=== PATIENT | female | born 1975 | race Caucasian/White ===

== ENCOUNTER 2017-07-27 15:48 | Emergency (ER) | payer SELFPAY ==
[~2017-07-27] VITALS: Ht 160 cm; Wt 77.1 kg
[2017-07-27 15:48] VITALS: BP 121/71
--- NOTE | 2017-07-27 16:45 | NUR ---
CALLED FOR TRIAGE, NO ANSWER, PT PHYSICALLY NOT IN WAITING ROOM
--- NOTE | 2017-07-27 17:50 | NUR ---
CALLED FOR TRIAGE, NO ANSWER, PT PHYSICALLY NOT IN WAITING ROOM
--- NOTE | 2017-07-27 19:13 | NUR ---
RECEIVED REPORT FROM PARVEEN CHOI.
== END 2017-07-27 21:09 | disposition home or self-care (01) ==
LOC: ER 16:00
DX: S63.613A Unspecified sprain of left middle finger, initial encounter (principal); Z98.890 Other specified postprocedural states; X58.XXXA Exposure to other specified factors, initial encounter; Y93.89 Activity, other specified; Y92.89 Other specified places as the place of occurrence of the external cause; Y99.8 Other external cause status
CPT/HCPCS: 73140-TC; A4606; Z7610

== ENCOUNTER 2018-12-19 14:21 | Emergency (ER) | payer MEDICAID ==
[~2018-12-19] VITALS: Ht 167.6 cm; Wt 76.7 kg
--- NOTE | 2018-12-19 15:06 | NUR ---
C/O L FLANK PAIN AND NOSE BLEEDING SINCE 6AM PT "HAVING HARD TIME TO URINATE". STATES PAIN 7/10 AND SHARP. DENIES CHANGES IN BLADDER/BOWEL HABITS. ON MONITOR, MADE COMFORTABLE, AND READY FOR EVAL.
[2018-12-19] MEDS ORDERED: KETOROLAC TROMETHAMINE INJ 30 MG/ML VIAL IV ONE (15:30)
[2018-12-19] MEDS ORDERED: ONDANSETRON HCL/PF 4 MG/2 ML VIAL IVP ONE (15:30)
[2018-12-19] MEDS ORDERED: IV NS 0.9% 1,000 ML BAG IV ONE (15:30)
[2018-12-19 15:38] LABS: BASOPHILS # (AUTO) 0.1 /CMM (0.0-0.2); BASOPHILS % (AUTO) 1.1 % (0.0-2.0); EOSINOPHILS % (AUTO) 1.8 % (0.0-6.0); HEMATOCRIT 37 % (33-45); HEMOGLOBIN 12.5 g/dL (11.5-14.8); LYMPHOCYTES # (AUTO) 1.8 /CMM (0.8-4.8); MEAN CORPUSCULAR HGB CONC 34 g/dl (31.0-36.0); MEAN CORPUSCULAR VOLUME 87 fL (82-100); MONOCYTES # (AUTO) 0.4 /CMM (0.1-1.30); MONOCYTES % (AUTO) 5.8 % (2.0-12.0); NEUTROPHILS # (AUTO) 4.5 /CMM (1.8-8.9); NEUTROPHILS % (AUTO) 65.3 % (43.0-81.0); PLATELET COUNT (AUTO) 409 /CMM (150-450); RED BLOOD CELL COUNT(AUTO) 4.23 MIL/uL (4.0-5.2); WHITE BLOOD COUNT (AUTO) 6.8 K/uL (4.3-11.0)
[2018-12-19] MEDS ORDERED: ONDANSETRON HCL/PF 4 MG/2 ML VIAL ONE (15:41)
[2018-12-19] MEDS ORDERED: KETOROLAC TROMETHAMINE INJ 30 MG/ML VIAL ONE (15:41)
[2018-12-19 15:56] LABS: CALCIUM, SERUM 8.8 mg/dL (8.5-10.1); CREATININE 0.7 mg/dL (0.6-1.3); POTASSIUM 3.9 mmol/L (3.5-5.1)
[2018-12-19 16:05] LABS: ALBUMIN 3.5 g/dL (3.4-5.0); BILIRUBIN,DIRECT 0.1 mg/dL (0.0-0.2); BILIRUBIN,TOTAL 0.4 mg/dL (0.2-1.0); TOTAL PROTEIN, SERUM 7.4 g/dL (6.4-8.2)
--- NOTE | 2018-12-19 16:43 | NUR ---
URINE SENT TO STAT LAB
[2018-12-19 16:50] LABS: APPEARANCE,URINE Clear (CLEAR); BILIRUBIN,URINE Negative (NEGATIVE); BLOOD, URINE Trace-intact Ery/uL (NEGATIVE); COLOR,URINE Yellow (YELLOW); KETONES,URINE Negative (NEGATIVE); LEUKOCYTE ESTERASE ,URINE Negative (NEGATIVE); NITRITE, URINE Negative (NEGATIVE); PROTEIN,URINE Negative (NEGATIVE); UGLUCOSE Negative (NEGATIVE); UROBILINOGEN,URINE 0.2 EU/dL (0.2)
[2018-12-19 17:21] LABS: RBC,URINE 0-2 /HPF (0-2)
[2018-12-19 17:22] LABS: BACTERIA,URINE None seen /HPF (None Seen); SQUAMOUS EPITHELIAL CELL,UR Rare /HPF (None Seen); WBC,URINE 0-2 /HPF (0-3)
--- NOTE | 2018-12-19 17:44 | NUR ---
IV removed. Catheter intact and site benign. Pressure and 4x4 applied to site. No bleeding noted. Patient discharged to home in stable condition. Written and verbal after care instructions given. Patient verbalizes understanding of instruction.
[2018-12-19 23:22] VITALS: BP 108/45
== END 2018-12-19 17:44 | disposition home or self-care (01) ==
LOC: ER 14:21
DX: R30.0 Dysuria (principal); J32.9 Chronic sinusitis, unspecified; Z98.890 Other specified postprocedural states
CPT/HCPCS: 36415; 80048; 80076; 81001; 83690; 84703; 85025; 85730; 87086; 96374; 96375; 99283; J1885; J2405; J7030; 81000-TC

== ENCOUNTER 2024-12-03 15:46 | Emergency (ER) | payer MEDICAID ==
[~2024-12-03] VITALS: Ht 167.6 cm; Wt 79.8 kg
[2024-12-03 16:53] LABS: APPEARANCE,URINE SLIGHTLY CLOUDY (CLEAR); BILIRUBIN,URINE Negative (NEGATIVE); BLOOD, URINE Moderate Ery/uL (NEGATIVE); COLOR,URINE YELLOW (YELLOW); KETONES,URINE Negative (NEGATIVE); LEUKOCYTE ESTERASE ,URINE Small (NEGATIVE); NITRITE, URINE NEGATIVE (NEGATIVE); PH,URINE 5.5 (5.0-8.0); PROTEIN,URINE Negative (NEGATIVE); UGLUCOSE Negative (NEGATIVE); UROBILINOGEN,URINE 0.2 EU/dL (0.2)
[2024-12-03] MEDS ORDERED: IBUP-1490 PO (17:09)
[2024-12-03] MEDS ORDERED: SULF1TAB48 PO (17:09)
[2024-12-03] MEDS ORDERED: IBUPROFEN 600 MG TABLET ONE (17:12)
[2024-12-03] MEDS ORDERED: ACETAMINOPHEN 325 MG TABLET ONE (17:12)
[2024-12-03] MEDS: ACETAMINOPHEN 325 MG TABLET PO ONE (17:18)
[2024-12-03] MEDS: IBUPROFEN 600 MG TABLET PO ONE (17:18)
[2024-12-03 17:19] VITALS: BP 116/80; TEMP 98.6; O2SAT 95
[2024-12-03 17:26] LABS: ADD URINE CULTURE YES; BACTERIA,URINE Moderate /HPF (None Seen); RBC,URINE 0-2 /HPF (0-2); WBC,URINE 21-50 /HPF (0-3)
== END 2024-12-03 17:19 | disposition home or self-care (01) ==
LOC: ER 16:06
DX: N39.0 Urinary tract infection, site not specified (principal)
CPT/HCPCS: 81001; 84703-TC; 87086-TC

== ENCOUNTER → 2024-12-03 | Emergency (ER) | payer MEDICAID ==
[~2024-12-03] MED LIST: IBUP-1490 PO; SULF1TAB48 PO
== END | disposition left against medical advice (07) ==
LOC: ER 17:29
DX: Z00.00 Encounter for general adult medical examination without abnormal findings (principal); Z53.21 Procedure and treatment not carried out due to patient leaving prior to being seen by health care provider

== ENCOUNTER 2025-01-09 02:14 | Emergency (ER) | payer MEDICAID ==
[~2025-01-09] VITALS: Ht 162.6 cm; Wt 72.6 kg
[2025-01-09] MEDS ORDERED: ONDANSETRON HCL/PF 4 MG/2 ML VIAL ONE (03:14)
[2025-01-09] MEDS ORDERED: MORPHINE SULFATE INJ 4 MG/ML DISP.SYRIN ONE (03:14)
[2025-01-09] MEDS: ONDANSETRON HCL/PF 4 MG/2 ML VIAL IVP ONE (03:19)
[2025-01-09] MEDS: MORPHINE SULFATE INJ 2 MG/ML DISP.SYRIN IV ONE (03:19)
[2025-01-09] MEDS: IV NS 0.9% 1,000 ML BAG IV ONE (03:19)
[2025-01-09 03:26] LABS: PLATELET COUNT (AUTO) 453 K/uL (150-450); RED BLOOD CELL COUNT(AUTO) 4.34 MIL/uL (4.0-5.2); RED CELL DISTRIBUTION WIDTH 14.0 % (11.5-15.0); WHITE BLOOD COUNT (AUTO) 7.8 K/uL (4.3-11.0)
[2025-01-09 03:42] LABS: APPEARANCE,URINE TURBID (CLEAR); BLOOD, URINE 2+ Ery/uL (NEGATIVE); LEUKOCYTE ESTERASE ,URINE 2+ (NEGATIVE); NITRITE, URINE POSITIVE (NEGATIVE); PREGNANCY TEST URINE QUAL NEGATIVE (NEGATIVE); UGLUCOSE NEGATIVE (NEGATIVE)
[2025-01-09 03:43] LABS: ADD URINE CULTURE YES; SQUAMOUS EPITHELIAL CELL,UR Rare /HPF (None Seen)
[2025-01-09 03:52] LABS: ASPARTATE AMINOTRANSFERASE 11.0 U/L (15-37); CALCIUM, SERUM 9.2 mg/dL (8.5-10.1); CREATININE 0.7 mg/dL (0.6-1.3); SODIUM SERUM 138.0 mmol/L (136-145); TOTAL PROTEIN, SERUM 7.2 g/dL (6.4-8.2); UREA NITROGEN, BLOOD 13.0 mg/dL (7-18)
[2025-01-09] MEDS ORDERED: CEFTRIAXONE 1GM BAG (ER ONLY) 50 ML IV ONE (03:58)
[2025-01-09] MEDS: CEFTRIAXONE 1 G in IV D5W 50 ML IV ONE (03:59)
[2025-01-09] MEDS ORDERED: CEFP200T14 PO (06:06)
[2025-01-09] MEDS ORDERED: IBUP-1490 PO (06:06)
[2025-01-09 06:15] VITALS: BP 137/77; TEMP 98.4; O2SAT 97
== END 2025-01-09 06:15 | disposition home or self-care (01) ==
LOC: ER 02:17
DX: N12 Tubulo-interstitial nephritis, not specified as acute or chronic (principal); R10.9 Unspecified abdominal pain; R39.11 Hesitancy of micturition; Z79.899 Other long term (current) drug therapy; Z98.890 Other specified postprocedural states
CPT/HCPCS: 99285; 74176; 96365; 96375; 96361; 85025; 80048; 87077; 87086; 83690; 80076; 84703; 87186; 81001; 36415; J2270; J0696 ×2; J2405; J7060